=== PATIENT | female | born 1960 | race African-American/Black ===

== ENCOUNTER 2018-09-24 07:50 | Day surgery (SDC) | payer BC ==
[2018-09-22 13:13] VITALS: BMI 33.5
[2018-09-24] MEDS ORDERED: ROCURONIUM BROMIDE 50 MG/5 ML VIAL ONE (09:07)
[2018-09-24] MEDS ORDERED: fentaNYL CITRATE 250 MCG/5 ML VIAL ONE (09:07)
[2018-09-24] MEDS ORDERED: PROPOFOL 20 ML ONE ×3 (09:07)
[2018-09-24] MEDS ORDERED: MIDAZOLAM HCL 2 MG/2 ML SINGLE DOSE VIAL ONE (09:07)
[2018-09-24] MEDS ORDERED: NEOSTIGMINE METHYLSULFATE 0.5 MG/ML - 10 ML MDV ONE (09:14)
[2018-09-24] MEDS ORDERED: BUPIVACAINE HCL/PF 0.5% (5MG/ML) 10 ML VIAL ONE (09:56)
[2018-09-24] MEDS ORDERED: ceFAZolin SODIUM 1 GM VIAL IVPB ONE (10:27)
[2018-09-24] MEDS ORDERED: oxyCODONE HCL 5 MG TABLET PO PRN (10:34)
[2018-09-24] MEDS ORDERED: ONDANSETRON 4 MG/2 ML VIAL IVPUSH PRN (10:34)
[2018-09-24] MEDS ORDERED: LACTATED RINGERS SOLUTION 1,000 ML IV SCH (10:45)
[2018-09-24] MEDS ORDERED: BUPIVACAINE HCL/PF (5 MG/ML) 30 ML VIAL IJ ONE (11:25)
--- NOTE | 2018-09-24 11:50 | OP ---
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
--- NOTE | 2018-09-24 13:31 | OP ---
DATE OF OPERATION: 09/24/2018 DATE OF DICTATION: 09/24/2018 PREOPERATIVE DIAGNOSES: Ovarian cyst, pelvic pain. OPERATION: Laparoscopic bilateral oophorectomy. POSTOPERATIVE DIAGNOSES: Left dermoid cyst and right ovarian cyst. SURGEON: Elis Rod MD MEDICARE INSURANCE SPECIALIST: BRIELLE Maciel ANESTHESIA: General. VETERINARY LABORATORY DIAGNOSTICIAN: Elieser Albert PROCEDURE: Patient was taken to the operating room, placed in the dorsal lithotomy position, prepped and draped in the usual sterile fashion. A timeout was performed in accordance with hospital regulation. Boudreaux catheter was inserted into the bladder. Attention was then drawn to the umbilicus where a 5-mm umbilical incision was made. Veress needle was inserted into the cavity. Approximately 3 to 4 L of CO2 was insufflated in the cavity. Veress needle was then removed and a 5-mm trocar was then inserted. Laparoscope and camera attached. Visualization revealed bilateral ovarian cysts. Two trocars, 1 placed in the upper left quadrant 5 mm and an 11-mm trocar was inserted on the left and another 5 on the lower right inserted under direct visualization after scalpel had made an incision. Grasper was then used to grasp the right ovary and a right ovarian oophorectomy was done using LigaSure. Coagulation and cutting were done of the infundibulopelvic ligament and the ovary. ovary was then removed. Attention was then drawn to the ovary where the more enlarged ovary was seen, approximately 4 cm in size. A cystotomy was done and found to have dermoid cyst. Also infundibulopelvic ligament was identified and ligament was clamped and cut and ovary was removed using LigaSure using cautery and cutting. The left ovary was then removed and dermoid was noted. Endobag was placed and the ovary was placed in the Endobag and removed. Both specimens were submitted to Pathology. Mike-Miryam was then used to close the 11-mm incision and then all incisions were closed after CO2 was removed from the abdomen and 4-0 Biosyn suture. Estimated blood loss 10 mL. Wound was washed and dressed. Patient tolerated procedure well. Was taken to recovery in stable condition. Ric [id number]
--- NOTE | 2018-09-24 13:49 | SURG ---
Surgery Radio Interference Expert Note Radio Interference Expert: Skyla Clark PA-C Date of Service: 09/24/18 Diagnosis: possible teratoma Procedure: laparoscopic bilateral oophorectomy I was present for the entirety of the operative procedure. For further detail, please refer to operative report. Visit type - Case Type Case Type: Scheduled - Emergency Emergency Visit: No - New patient This patient is new to me today: No
[2018-09-24] MEDS ORDERED: oxyCODONE HCL 5 MG TABLET ONE (14:37)
[2018-09-24] MEDS ORDERED: ONDANSETRON 4 MG/2 ML VIAL ONE (14:37)
[2018-09-24 16:54] VITALS: BP 125/72; PULSE 78; TEMP 97
--- NOTE | 2018-09-25 13:48 | PATH ---
Surgical Pathology Report Patient Name: EMI WILSON [facility]. Rec. #: [id number] /Age/Gender: 1960 (Age: 58) / F Account: [id number] Location: AMBULATORY SURG Taken: 09/24/2018 Received: 09/24/2018 Reported: 09/25/2018 Physicians: Elis Rod M.D. Specimen(s) Received A: RIGHT OVARY CYST B: LEFT OVARY DERMOID Clinical History Pelvic pain Final Diagnosis A. OVARY, RIGHT, CYST, LAPAROSCOPIC OOPHORECTOMY: OVARY WITH BENIGN CYST COMPATIBLE WITH SEROUS CYST. B. 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 Electronically Signed Lina Wyatt M.D. Gross Description A. Received in formalin labeled "right ovary cyst," is a 3.8 x 2.0 x 1.3 cm ovary. The outer surface is bernal-pink and smooth with a focal defect. Sectioning reveals bernal-pink parenchyma. Human Resources Hr Generalist sections are submitted in 2 cassettes. B. Received in formalin labeled "left ovary dermoid," is a 3.3 x 2.8 x 1.9 cm focally disrupted cystic structure. The outer surface is bernal-pink and smooth with a focal defect. Sectioning reveals bernal sebaceous material within the lumen. Human Resources Hr Generalist sections are submitted in 3 cassettes. /09/24/201809/24/2018
== END 2018-09-24 16:40 | disposition home or self-care (01) ==
LOC: JASUSAT 07:50
PROVIDERS: ATTEND Obstetrics & Gynecology
PROC: 0UT24ZZ Resection of Bilateral Ovaries, Percutaneous Endoscopic Approach (ICD-10-PCS; principal; 2018-09-24 10:00)
DX: N83.201 Unspecified ovarian cyst, right side (principal); D27.1 Benign neoplasm of left ovary
CPT/HCPCS: 86850; 86900; 86901; 88305-TC; 88307-TC; 94760